=== PATIENT | female | born 1980 | race Caucasian/White ===

== ENCOUNTER 2021-02-13 08:28 | Outpatient (CLI) | payer OTHER, SELFPAY ==
--- NOTE | ~2021-02-13 | US_ITS ---
US pelvic complete w TV DATE: 02/13/2021 09:18 INDICATION: Left pelvic pain. History of hysterectomy. TECHNIQUE: Real-time imaging via transabdominal and transvaginal approaches COMPARISON: None FINDINGS: History of hysterectomy. Right ovary 3.3 x 2.7 x 2.1 cm with vascular flow. There is a 1.8 cm right ovarian cyst.. Left ovary 3.5 x 2.1 x 2.2 cm, with vascular flow. There is a 2.4 cm septated left adnexal cyst. No pelvic mass or abnormal pelvic fluid collection is evident. IMPRESSION: Status post hysterectomy 2.4 cm septated left adnexal cyst and 1.8 cm right ovarian cyst Reviewed, dictated and finalized at [facility]. Reviewed, dictated and finalized at [facility].
== END 2021-02-13 08:29 | disposition home or self-care (01) ==
LOC: ANHIMG 08:35
PROVIDERS: Visit Provider Student in an Organized Health Care Education/Training Program
DX: R10.2 Pelvic and perineal pain (principal)
CPT/HCPCS: 76830; 76856